=== PATIENT | female | born 1980 | race Caucasian/White ===

== ENCOUNTER → 2020-12-22 | Outpatient (CLI) | payer OTHER ==
[~2020-12-22] MED LIST: NORCO 5-325 TA1 EACH PO; ZOFRAN ODT 4 MG4 MG SL
== END ==
LOC: KOH-I 13:45
DX: M25.572 Pain in left ankle and joints of left foot (principal); M25.471 Effusion, right ankle
CPT/HCPCS: 73610; 73630